=== PATIENT | male | born 1945 | race Caucasian/White ===

== ENCOUNTER 2022-03-06 11:28 | Inpatient (IN) | payer MEDICARE, BC ==
[2022-03-05 12:52] LABS: BASOPHILS # (AUTO) 0.1 X10'3 (0-0.2); BASOPHILS % (AUTO) 0.7 % (0-1); EOSINOPHILS # (AUTO) 0.1 X10'3 (0-0.9); EOSINOPHILS % (AUTO) 1.3 % (0-6); HEMATOCRIT 38.9 % (42.0-52.0); HEMOGLOBIN 13.6 g/dl (14.0-17.9); LYMPHOCYTES # (AUTO) 1.9 X10'3 (1.1-4.8); LYMPHOCYTES % (AUTO) 17.4 % (21-51); MEAN CORPUSCULAR HGB CONC 34.9 g/dL (33.0-36.5); MEAN CORPUSCULAR VOLUME 91.8 FL (78-98); MONOCYTES # (AUTO) 0.8 X10'3 (0-0.9); MONOCYTES % (AUTO) 7.5 % (2-12); NEUTROPHILS % (AUTO) 73.1 % (42-75); PLATELET COUNT 256 X10'3 (140-440); RED BLOOD COUNT 4.23 X10'6 (4.70-6.10); RED CELL DISTRIBUTION WIDTH 13.9 % (11.5-14.5)
[2022-03-05 13:23] LABS: APTT 28 SECONDS (22-32)
[2022-03-05 13:26] LABS: ALANINE AMINOTRANSFERASE 36 U/L (12-78); ALBUMIN 3.3 G/DL (3.4-5.0); ALBUMIN/GLOBULIN RATIO 0.8 (1.1-1.5); ALKALINE PHOSPHATASE 59 IU/L (46-116); ANION GAP 8 (8-16); ASPARTATE AMINO TRANSFERASE 24 U/L (10-37); BILIRUBIN,TOTAL 0.5 MG/DL (0.1-1.0); BLOOD UREA NITROGEN 15 MG/DL (7-18); BUN/CREATININE RATIO 23.8 (5.4-32.0); CALCIUM 8.9 MG/DL (8.5-10.1); CHLORIDE 105 MMOL/L (99-107); CREATININE 0.63 MG/DL (0.60-1.10); GLUCOSE 100 MG/DL (70-104); POTASSIUM 4.2 MMOL/L (3.5-5.1); SODIUM 139 MMOL/L (135-145); TOTAL CARBON DIOXIDE 26.2 MMOL/L (24-32); TOTAL PROTEIN 7.2 G/DL (6.4-8.2); eGFR > 90 ML/MIN
[~2022-03-06] VITALS: Ht 182.9 cm; Wt 117.6 kg
[2022-03-06] VITALS (12 sets, daily range): BP systolic 121–155; BP diastolic 69–94
[~2022-03-06 11:28] MED LIST: DUTA0.5C40 PO; FAMO20TA41 PO; NABU-139 PO; OMEP20TA43 PO
[2022-03-06] MEDS ORDERED: ACET-1 PO (12:04)
[2022-03-06] MEDS ORDERED: IBUP-1986 PO (12:04)
[2022-03-06] MEDS ORDERED: LINA145C PO (12:04)
[2022-03-06] MEDS ORDERED: HYDR-3686 PO (12:04)
[2022-03-06] MEDS ORDERED: nitroGLYCERIN 0.4mg SUBLingual tab SL PRN ×2 (12:05→12:15)
[2022-03-06] MEDS ORDERED: diphenhydrAMINE 25mg capsule PO PRN ×3 (12:05→17:35)
[2022-03-06] MEDS ORDERED: LORazepam 0.5 MG tablet PO PRN ×2 (12:05→12:20)
[2022-03-06] MEDS ORDERED: midazolam 1 mg/ML 2ml injection ONE ×2 (12:52→13:56)
[2022-03-06] MEDS ORDERED: fentaNYL/PF 50MCG/1 ML 2ML syringe ONE (12:52)
[2022-03-06] MEDS ORDERED: iohexol 350 MG/ML 50ML vial IV ONE ×2 (12:52→13:40)
[2022-03-06] MEDS ORDERED: LIDOCAINE 1% w/preservative (10 MG/ML) inj. 10mL VIAL ONE (12:52)
[2022-03-06] MEDS ORDERED: iohexol 350MG/ML 100ml bottle IV ONE ×2 (12:52→13:35)
[2022-03-06] MEDS: normal saline 1,000 ML IV SCH ×4 (12:59→21:07)
[2022-03-06] MEDS ORDERED: OXAZEpam 15mg capsule PO PRN (14:40)
[2022-03-06] MEDS ORDERED: HYDROcodone/acetaminophen 10/325mg tab PO PRN (14:40)
[2022-03-06] MEDS ORDERED: proCHLORperazine 10 MG/2 ml inj IV PRN (14:40)
[2022-03-06] MEDS ORDERED: ondansetron/PF 4mg/2ml inj IV PRN (14:40)
[2022-03-06 16:21] LABS: ABG BASE EXCESS -1.6 mmol/L (-2.0-2.0); ABG HCO3 22.5 mmol/L (22.0-26.0); ABG OXYGEN SATURATION 94.7 % (94-97); ABG PCO2 (T) 36.2 mmHg (35.0-48.0); ABG PO2 (T) 73.7 mmHg (75.0-100.0); ALLEN'S TEST POSITIVE; FCOHb 0.8 % (0.0-3.9); FMetHb 0.1 % (0.0-1.5); FO2Hb 93.8 % (94-97); TOTAL HEMOGLOBIN 13.6 G/dl (14.0-18.0)
[2022-03-06] MEDS ORDERED: MESSAGE TO NURSING PO ONE ×4 (17:35)
[2022-03-06] MEDS: Insulin Reg/NS 100units/100mL 100 ML IV SCH (17:35)
[2022-03-06] MEDS ORDERED: dextrose 50%-water 50ml dispensing syringe IV PRN (17:35)
[2022-03-06] MEDS ORDERED: HYDROcodone/acetaminophen 5mg/325mg tablet PO PRN (17:35)
[2022-03-06] MEDS ORDERED: insulin glargine (Lantus) pen - multi-dose SQ PRN (17:35)
[2022-03-06] MEDS ORDERED: cefazolin/dext.iso 2gm/50ml 50 ML IV ONE (17:35)
[2022-03-06] MEDS ORDERED: MESSAGE TO PHARMACY IJ ONE (17:35)
[2022-03-06] MEDS ORDERED: ondansetron 4mg rapidly disintigrating tab PO PRN (17:35)
[2022-03-06] MEDS ORDERED: gabapentin 400mg capsule PO ONE (17:35)
[2022-03-06] MEDS ORDERED: ibuprofen 200mg tablet PO PRN (17:40)
--- NOTE | 2022-03-06 17:48 | NUR ---
Patient in room . I have received report from ELENA RICKS SHORT STAY and had the opportunity to ask questions and assume patient care.
[2022-03-06] MEDS: normal saline 1000ml 1,000 ML IV SCH ×2 (18:00→19:00)
--- NOTE | 2022-03-06 18:00 | NUR ---
VSS, sml amt of bld on dsg, RN Domi marked dsg, Patient report given, questions answered & plan of care reviewed with MILLICENT Duron, call light within pt's reach, pt is in stable condition at this time, all pt's belongings transferred with pt. in pt belong bag including pt's phone that brought to pt. and pt's glasses.
--- NOTE | 2022-03-06 18:57 | NUR ---
Problems reprioritized. Patient report given, questions answered & plan of care reviewed with Soha RICKS.
--- NOTE | 2022-03-06 19:11 | NUR ---
Patient in room . I have received report from MILLICENT Hoyos and had the opportunity to ask questions and assume patient care.
--- NOTE | 2022-03-06 19:13 | NUR ---
Problems reprioritized. Patient report given, questions answered & plan of care reviewed with MILLICENT Dalton.
[2022-03-06] MEDS: sod chloride 0.9% 10ml flush syringe IV SCH (19:30)
[2022-03-06] MEDS: metoprolol tartrate 12.5mg (1/2 tablet) PO SCH (19:31)
[2022-03-06 19:54] LABS: APTT 28 SECONDS (22-32)
[2022-03-07 02:00] VITALS: BP 135/67
--- NOTE | 2022-03-07 06:17 | NUR ---
Problems reprioritized. Patient report given, questions answered & plan of care reviewed with MILLICENT Lema. Patient NPO, sitting up to bed. Denies pain.
--- NOTE | 2022-03-07 06:59 | NUR ---
Patient in room PCU 3012. I have received report from Krystle RICKS and had the opportunity to ask questions and assume patient care.
[2022-03-07] MEDS: dutasteride 0.5 MG capsule PO SCH (07:40)
[2022-03-07] MEDS: hydrOXYzine 25 MG tablet PO SCH (07:40)
[2022-03-07] MEDS: metoprolol tartrate 12.5mg (1/2 tablet) PO SCH (07:40)
[2022-03-07 08:00] VITALS: BP 134/79
[2022-03-07 09:24] LABS: BASOPHILS # (AUTO) 0.1 X10'3 (0-0.2); BASOPHILS % (AUTO) 0.6 % (0-1); EOSINOPHILS # (AUTO) 0.2 X10'3 (0-0.9); EOSINOPHILS % (AUTO) 1.5 % (0-6); HEMATOCRIT 38.3 % (42.0-52.0); HEMOGLOBIN 13.3 g/dl (14.0-17.9); LYMPHOCYTES # (AUTO) 1.9 X10'3 (1.1-4.8); LYMPHOCYTES % (AUTO) 16.9 % (21-51); MEAN CORPUSCULAR HEMOGLOBIN 31.9 PG (27.0-31.0); MEAN CORPUSCULAR HGB CONC 34.6 g/dL (33.0-36.5); MEAN CORPUSCULAR VOLUME 92.2 FL (78-98); MEAN PLATELET VOLUME 8.4 FL (7.4-10.4); MONOCYTES % (AUTO) 8.6 % (2-12); NEUTROPHILS # (AUTO) 8.1 X10'3 (1.8-7.7); NEUTROPHILS % (AUTO) 72.4 % (42-75); PLATELET COUNT 235 X10'3 (140-440); RED BLOOD COUNT 4.15 X10'6 (4.70-6.10); RED CELL DISTRIBUTION WIDTH 13.7 % (11.5-14.5); WHITE BLOOD COUNT 11.2 X10'3 (4.5-11.0)
[2022-03-07 09:27] LABS: ALBUMIN 2.9 G/DL (3.4-5.0); ANION GAP 7 (8-16); BLOOD UREA NITROGEN 13 MG/DL (7-18); BUN/CREATININE RATIO 23.6 (5.4-32.0); CALCIUM 8.7 MG/DL (8.5-10.1); CHLORIDE 104 MMOL/L (99-107); CREATININE 0.55 MG/DL (0.60-1.10); GLUCOSE 94 MG/DL (70-104); POTASSIUM 3.8 MMOL/L (3.5-5.1); SODIUM 136 MMOL/L (135-145); TOTAL CARBON DIOXIDE 24.8 MMOL/L (24-32); eGFR > 90 ML/MIN
[2022-03-07] MEDS ORDERED: MESSAGE TO NURSING PO ONE (10:00)
[2022-03-07] MEDS: HYDROcodone/acetaminophen 5mg/325mg tablet PO PRN ×2 (11:08→21:24)
[2022-03-07 14:34] LABS: CLARITY,URINE CLEAR (Clear); COLOR,URINE YELLOW (Yellow); GLUCOSE, URINE NEGATIVE (Neg); KETONES,URINE NEGATIVE (Neg); LEUKOCYTE ESTERASE ,URINE NEGATIVE (Neg); NITRITES, URINE NEGATIVE (Neg); OCCULT BLOOD,URINE NEGATIVE (Neg); PROTEIN,URINE NEGATIVE (Neg)
[2022-03-07 14:38] LABS: UA COLLECTION TYPE NON-SPECIFIED
[2022-03-07] MEDS ORDERED: ringers solution, lacted 1,000 ML IV ONE (14:50)
[2022-03-07 18:00] VITALS: BP 136/77
[2022-03-07] MEDS: normal saline 1,000 ML IV SCH (18:05)
[2022-03-07] MEDS: sod chloride 0.9% 10ml flush syringe IV SCH (20:00)
[2022-03-08] VITALS (19 sets, daily range): BP systolic 98–151; BP diastolic 57–82
[2022-03-08] MEDS: Insulin Reg/NS 100units/100mL 100 ML IV SCH ×2 (02:55→17:29)
[2022-03-08] MEDS: normal saline 1,000 ML IV SCH ×2 (04:05→14:05)
[2022-03-08] MEDS ORDERED: LORazepam 2 mg/ml vial IV ONE (06:00)
[2022-03-08] MEDS ORDERED: famotidine/PF 10 mg/ml inj IV ONE (06:00)
[2022-03-08] MEDS ORDERED: ceFAZolin 1000mg inj ONE (07:25)
[2022-03-08] MEDS ORDERED: ROPIVAcaine 0.5% (5mg/ml) 30ml vial ONE (07:25)
[2022-03-08] MEDS ORDERED: DOPamine 400mg/D5W 250ml 250 ML IV SCH (07:45)
[2022-03-08] MEDS ORDERED: ceFAZolin/D5W- 1GM premix 50 ML IV ONE (07:50)
[2022-03-08] MEDS ORDERED: magnesium 1 GM/2 ML inj ONE (08:00)
[2022-03-08] MEDS ORDERED: heparin 10,000 units/1 ML INJ ONE (08:00)
[2022-03-08] MEDS ORDERED: potassium acetate 2 mEq/1ml inj. IV ONE (08:00)
[2022-03-08] MEDS ORDERED: LIDOcaine 2% (20 mg/ml) 5ml cardiac syringe ONE (08:00)
[2022-03-08] MEDS: sod chloride 0.9% 10ml flush syringe IV SCH (08:00)
[2022-03-08] MEDS ORDERED: heparin 1,000 units/ml 10ml inj ONE (08:00)
[2022-03-08] MEDS: hydrOXYzine 25 MG tablet PO SCH (08:00)
[2022-03-08] MEDS ORDERED: albumin (human) 25% 100 ML IV solution IV ONE (08:00)
[2022-03-08] MEDS: metoprolol tartrate 12.5mg (1/2 tablet) PO SCH ×2 (08:00→09:00)
[2022-03-08] MEDS ORDERED: methylPREDNISolone sod succ 1000mg vial ONE (08:00)
[2022-03-08] MEDS ORDERED: calcium chloride 100 MG/1 ML inj IV ONE (08:00)
[2022-03-08] MEDS ORDERED: NORepinephrine bitart. inj. IV ONE (08:00)
[2022-03-08] MEDS ORDERED: sodium bicarbonate (8.4%) 1 mEq/ml syringe ONE (08:00)
[2022-03-08] MEDS: dutasteride 0.5 MG capsule PO SCH (08:00)
[2022-03-08] MEDS ORDERED: aminocaproic acid 250 MG/1 ML inj. ONE (08:00)
[2022-03-08] MEDS ORDERED: ceFAZolin 2gm in dextrose, iso 50 ML IV ONE (08:10)
[2022-03-08] MEDS ORDERED: papaverine 30 mg/ml 2ml inj. IA ONE (08:23)
[2022-03-08] MEDS ORDERED: heparin 10,000 units/1 ML INJ IR ONE (08:24)
[2022-03-08] MEDS ORDERED: MIDAZolam 1mg/ml 10ml vial ONE (09:53)
[2022-03-08] MEDS ORDERED: nitroGLYCERIN in D5W 50mg/250ml (Tridil) infusion IV ONE (09:54)
[2022-03-08] MEDS ORDERED: protamine sulf. 10mg/ml inj. IV ONE (09:54)
[2022-03-08] MEDS ORDERED: isoflurane 100ml inhalation liquid IH ONE (09:54)
[2022-03-08] MEDS ORDERED: albumin (Human) 5% 250ml BOTTLE IV ONE (09:54)
[2022-03-08] MEDS ORDERED: DOPamine/D5W 400mg/250ml bag IV ONE (09:54)
[2022-03-08] MEDS ORDERED: SUFENTANIL CITRATE 50 MCG/ML 2ml ampule IV ONE (09:54)
[2022-03-08] MEDS ORDERED: NORepinephrine 8 MG in NS 250 ML BAG (32 mcg/ml) IV ONE (09:54)
[2022-03-08] MEDS ORDERED: LIDOcaine 2% (20mg/ml) 5ml vial ONE (09:57)
[2022-03-08] MEDS ORDERED: propofol inj 20 ML IV ONE (09:57)
[2022-03-08] MEDS ORDERED: rocuronium 10mg/ml inj IV ONE ×4 (09:57→10:50)
[2022-03-08] MEDS ORDERED: phenylephrine 10mg/ml inj. ONE (09:57)
[2022-03-08] MEDS ORDERED: 0.9 % SODIUM CHLORIDE 10 ML VIAL ONE ×2 (09:57)
[2022-03-08 10:20] LABS: BASOPHILS # (AUTO) 0.2 X10'3 (0-0.2); EOSINOPHILS # (AUTO) 0.1 X10'3 (0-0.9); HEMATOCRIT 38.9 % (42.0-52.0); HEMOGLOBIN 13.3 g/dl (14.0-17.9); LYMPHOCYTES # (AUTO) 1.2 X10'3 (1.1-4.8); LYMPHOCYTES % (AUTO) 10.4 % (21-51); MEAN CORPUSCULAR HEMOGLOBIN 31.4 PG (27.0-31.0); MEAN CORPUSCULAR HGB CONC 34.2 g/dL (33.0-36.5); MEAN CORPUSCULAR VOLUME 91.8 FL (78-98); MEAN PLATELET VOLUME 8.5 FL (7.4-10.4); MONOCYTES # (AUTO) 0.9 X10'3 (0-0.9); MONOCYTES % (AUTO) 7.9 % (2-12); NEUTROPHILS # (AUTO) 9.2 X10'3 (1.8-7.7); NEUTROPHILS % (AUTO) 78.7 % (42-75); PLATELET COUNT 234 X10'3 (140-440); RED BLOOD COUNT 4.24 X10'6 (4.70-6.10); RED CELL DISTRIBUTION WIDTH 13.8 % (11.5-14.5); WHITE BLOOD COUNT 11.7 X10'3 (4.5-11.0)
[2022-03-08 10:40] LABS: ANION GAP 9 (8-16); BLOOD UREA NITROGEN 14 MG/DL (7-18); BUN/CREATININE RATIO 24.1 (5.4-32.0); CALCIUM 8.7 MG/DL (8.5-10.1); CHLORIDE 104 MMOL/L (99-107); CREATININE 0.58 MG/DL (0.60-1.10); GLUCOSE 101 MG/DL (70-104); POTASSIUM 3.8 MMOL/L (3.5-5.1); SODIUM 140 MMOL/L (135-145); TOTAL CARBON DIOXIDE 26.7 MMOL/L (24-32); eGFR > 90 ML/MIN
[2022-03-08 10:45] LABS: ABG BASE EXCESS -3.1 mmol/L (-2.0-2.0); ABG HCO3 20.9 mmol/L (22.0-26.0); ABG OXYGEN SATURATION 99.7 % (94-97); ABG PCO2 34.3 mmHg (35.0-48.0); ABG PO2 361.1 mmHg (75.0-100.0); CL (ABG) 104 mmol/L (98-110); FCOHb 0.4 % (0.0-3.9); FMetHb 0.3 % (0.0-1.5); GLUCOSE (ABG) 98 mg/dl (70-105); IONIZED CA (ABG) 1.13 mmol/L (1.10-1.43); K (ABG) 3.6 mmol/L (3.5-5.0); TOTAL HEMOGLOBIN 12.6 G/dl (14.0-18.0)
[2022-03-08] MEDS ORDERED: papaverine 30 mg/ml 2ml inj. ONE (11:00)
[2022-03-08 11:43] LABS: ABG BASE EXCESS 0.3 mmol/L (-2.0-2.0); ABG OXYGEN SATURATION 99.5 % (94-97); ABG PCO2 34.8 mmHg (35.0-48.0); ABG PO2 321.8 mmHg (75.0-100.0); CL (ABG) 103 mmol/L (98-110); FCOHb 0.3 % (0.0-3.9); FMetHb 0.3 % (0.0-1.5); FO2Hb 98.9 % (94-97); GLUCOSE (ABG) 106 mg/dl (70-105); IONIZED CA (ABG) 1.07 mmol/L (1.10-1.43); K (ABG) 4.2 mmol/L (3.5-5.0)
[2022-03-08] MEDS ORDERED: FENTANYL CITRATE/D5W/PF 100 ML IV PRN (12:15)
[2022-03-08] MEDS ORDERED: midazolam 1 mg/ML 2ml injection IV ONE (12:15)
[2022-03-08] MEDS ORDERED: midazolam 100mg in NS 100ml 100 ML IV PRN (12:15)
[2022-03-08] MEDS ORDERED: fentaNYL/PF 50MCG/1 ML 2ML syringe IV PRN (12:15)
[2022-03-08 12:31] LABS: ABG BASE EXCESS VENOUS 0.4 mmol/L (-2.0 - 2.0); ABG HCO3 VENOUS 25.6 mmol/L (21.0-28.0); ABG PCO2 VENOUS 43.6 mmHg (41.0-54.0); CL (ABG) 104 mmol/L (98-110); FCOHb VENOUS 0.6 %; FHHb VENOUS 16.4 %; FMetHb VENOUS 0.3 % (0.0 - 0.5); FO2Hb VENOUS 82.7 %; GLUCOSE (ABG) 132 mg/dl (70-105); IONIZED CA (ABG) 1.12 mmol/L (1.10-1.43); K (ABG) 4.2 mmol/L (3.5-5.0); TOTAL HEMOGLOBIN 10.7 G/dl (14.0-18.0)
[2022-03-08 13:45] LABS: ABG BASE EXCESS -0.5 mmol/L (-2.0-2.0); ABG HCO3 24.8 mmol/L (22.0-26.0); ABG OXYGEN SATURATION 99.5 % (94-97); CL (ABG) 105 mmol/L (98-110); FCOHb 0.6 % (0.0-3.9); FMetHb 0.3 % (0.0-1.5); FO2Hb 98.6 % (94-97); GLUCOSE (ABG) 156 mg/dl (70-105); IONIZED CA (ABG) 1.12 mmol/L (1.10-1.43); K (ABG) 4.5 mmol/L (3.5-5.0); TOTAL HEMOGLOBIN 10.7 G/dl (14.0-18.0)
[2022-03-08] MEDS ORDERED: FENTANYL-0.9 % NACL/PF 100 ML IV PRN (14:02)
[2022-03-08 14:34] LABS: ACT @ 1.70 U 292 SEC (193-297); ACT @ 2.84 U 410 SEC (260-420); BASELINE ACT 155 SEC (101-148)
[2022-03-08 14:39] LABS: ABG BASE EXCESS -1.6 mmol/L (-2.0-2.0); ABG HCO3 22.4 mmol/L (22.0-26.0); ABG PCO2 35.2 mmHg (35.0-48.0); ABG PO2 65.1 mmHg (75.0-100.0); CL (ABG) 107 mmol/L (98-110); FCOHb 0.2 % (0.0-3.9); FMetHb 0.3 % (0.0-1.5); FO2Hb 92.5 % (94-97); GLUCOSE (ABG) 129 mg/dl (70-105); K (ABG) 3.8 mmol/L (3.5-5.0); TOTAL HEMOGLOBIN 10.6 G/dl (14.0-18.0)
[2022-03-08 14:42] LABS: ACTIVATED CLOTTING TIME 123 SEC (101-148)
[2022-03-08] MEDS ORDERED: ondansetron/PF 4mg/2ml inj ONE (15:24)
[2022-03-08] MEDS ORDERED: dexamethasone sod phosphate 4mg/ml inj. ONE (15:24)
[2022-03-08] MEDS ORDERED: DOPamine 400mg/D5W 250ml 250 ML IV PRN (15:50)
[2022-03-08] MEDS ORDERED: niCARDipine-NS 40mg/200ml IVPB 200 ML IV PRN (15:50)
[2022-03-08] MEDS ORDERED: ondansetron/PF 4mg/2ml inj IV PRN (15:50)
[2022-03-08] MEDS ORDERED: magnesium citrate 296ml oral solution PO PRN (15:50)
[2022-03-08] MEDS ORDERED: magnesium 4gm in 100ml NS 100 ML IV PRN (15:50)
[2022-03-08] MEDS ORDERED: potassium Cl 20 mEq SR tablet PO PRN (15:50)
[2022-03-08] MEDS ORDERED: acetaminophen 325mg tablet PO PRN (15:50)
[2022-03-08] MEDS ORDERED: Neutra Phos packet PO PRN (15:50)
[2022-03-08] MEDS ORDERED: sodium phosphate inj. 30 MMOL in dextrose 5%-water 250 ML IV PRN (15:50)
[2022-03-08] MEDS ORDERED: dextrose 50%-water 50ml dispensing syringe IV PRN (15:50)
[2022-03-08] MEDS ORDERED: sodium phosphate inj. 15 MMOL in dextrose 5%-water 250 ML IV PRN (15:50)
[2022-03-08] MEDS ORDERED: potassium CL 10mEq/100ml bag 100 ML IV PRN (15:50)
[2022-03-08] MEDS ORDERED: nitroGLYCERIN-Tridil 50MG/D5W 250 ML IV PRN (15:50)
[2022-03-08] MEDS ORDERED: mineral oil 133ml enema RC PRN (15:50)
[2022-03-08] MEDS ORDERED: normal saline 250ml IV soln 250 ML IV PRN (15:50)
[2022-03-08] MEDS ORDERED: metoclopramide 5 mg/ml inj IV PRN (15:50)
[2022-03-08] MEDS ORDERED: morphine 2 MG/ML inj. syringe IV PRN (15:50)
[2022-03-08] MEDS ORDERED: insulin glargine (Lantus) pen - multi-dose SQ PRN (15:50)
[2022-03-08] MEDS ORDERED: NOREPINEPHRINE BITARTRATE/D5W 250 ML IV PRN ×2 (15:50→18:14)
[2022-03-08] MEDS ORDERED: bisacodyl 10mg suppository rectal RC PRN (15:50)
[2022-03-08] MEDS ORDERED: magnesium hydroxide 30ml (MOM) UD suspension PO PRN (15:50)
[2022-03-08] MEDS ORDERED: propofol 1000mg/100ml bottle 100 ML IV ONE (15:59)
[2022-03-08] MEDS ORDERED: propofol 1000mg/100ml bottle 100 ML IV PRN (16:00)
--- NOTE | 2022-03-08 16:00 | NUR ---
Received to room 2007, accompanied by Dr. Chowdhury, Dr. Whitaker and surgical crew. [place]/PAline/CVPline and IVs noted in IV assessment records. All sites without redness or swelling. Vasoactive drugs infusing per [facility]. Patient began waking up immediately upon admission to ICU and reaching for ETT. Propofol started. Atrially paced at rate of 80. Underlying rhythm sinus rhythm at rate of 60. CI 2.5. On low dose Levophed. Minimal drainage from CT & PASHA x 2. Breath sounds clear on ventilator.
--- NOTE | 2022-03-08 16:03 | NUR ---
Nutrition consult: Pt s/p CABG today. Pt would benefit from nutrition therapy education once stable. Will continue to follow. Addendum: 03/08/22 at [address] Amended: Links added.
[2022-03-08 16:17] LABS: ABG BASE EXCESS -0.7 mmol/L (-2.0-2.0); ABG HCO3 24.3 mmol/L (22.0-26.0); ABG OXYGEN SATURATION 97.9 % (94-97); ABG PCO2 (T) 41.4 mmHg (35.0-48.0); ABG PO2 (T) 112.2 mmHg (75.0-100.0); FCOHb 0.3 % (0.0-3.9); FMetHb 0.3 % (0.0-1.5); FO2Hb 97.3 % (94-97); PATIENT TEMPERATURE 36.8; PEEP 5 cm H2O; RESPIRATORY RATE 12 b/min; TIDAL VOLUME 600 mL; TOTAL HEMOGLOBIN 13.6 G/dl (14.0-18.0)
[2022-03-08 16:19] LABS: BASOPHILS # (AUTO) 0.1 X10'3 (0-0.2); BASOPHILS % (AUTO) 0.3 % (0-1); EOSINOPHILS % (AUTO) 0.1 % (0-6); HEMATOCRIT 38.1 % (42.0-52.0); HEMOGLOBIN 12.8 g/dl (14.0-17.9); LYMPHOCYTES # (AUTO) 0.9 X10'3 (1.1-4.8); MEAN CORPUSCULAR HEMOGLOBIN 30.6 PG (27.0-31.0); MEAN CORPUSCULAR HGB CONC 33.5 g/dL (33.0-36.5); MEAN CORPUSCULAR VOLUME 91.5 FL (78-98); MEAN PLATELET VOLUME 8.1 FL (7.4-10.4); MONOCYTES # (AUTO) 1.3 X10'3 (0-0.9); MONOCYTES % (AUTO) 4.2 % (2-12); NEUTROPHILS # (AUTO) 27.6 X10'3 (1.8-7.7); NEUTROPHILS % (AUTO) 92.4 % (42-75); PLATELET COUNT 218 X10'3 (140-440); RED BLOOD COUNT 4.17 X10'6 (4.70-6.10); RED CELL DISTRIBUTION WIDTH 13.9 % (11.5-14.5)
[2022-03-08 16:22] LABS: WHITE BLOOD COUNT 29.8 X10'3 (4.5-11.0)
[2022-03-08 16:39] LABS: ALANINE AMINOTRANSFERASE 28 U/L (12-78); ALBUMIN/GLOBULIN RATIO 0.9 (1.1-1.5); ALKALINE PHOSPHATASE 44 IU/L (46-116); ANION GAP 8 (8-16); ASPARTATE AMINO TRANSFERASE 57 U/L (10-37); BILIRUBIN,TOTAL 0.9 MG/DL (0.1-1.0); BLOOD UREA NITROGEN 15 MG/DL (7-18); BUN/CREATININE RATIO 21.7 (5.4-32.0); CALCIUM 8.1 MG/DL (8.5-10.1); CHLORIDE 109 MMOL/L (99-107); CREATININE 0.69 MG/DL (0.60-1.10); GLUCOSE 129 MG/DL (70-104); PHOSPHORUS 3.5 MG/DL (2.3-4.5); POTASSIUM 3.6 MMOL/L (3.5-5.1); SODIUM 143 MMOL/L (135-145); TOTAL CARBON DIOXIDE 26.1 MMOL/L (24-32); TOTAL PROTEIN 6.2 G/DL (6.4-8.2); eGFR > 90 ML/MIN
[2022-03-08] MEDS: morphine 4 MG/ML inj SYRINge IV PRN ×2 (16:44→21:49)
[2022-03-08 16:48] LABS: APTT 25 SECONDS (22-32)
[2022-03-08] MEDS: albumin (Human) 5% 250ml 250 ML IV PRN ×2 (16:55→21:19)
[2022-03-08] MEDS: sodium chloride 0.45% 1,000 ML IV SCH (16:56)
[2022-03-08 16:57] LABS: PLATELET ESTIMATE NORMAL; TOTAL CELLS COUNTED 100
[2022-03-08] MEDS: potassium Cl 20mEq/100mL bag 100 ML IV PRN ×2 (17:00→18:15)
[2022-03-08] MEDS: ceFAZolin/D5W- 1GM premix 50 ML IV SCH (17:26)
--- NOTE | 2022-03-08 18:28 | NUR ---
Problems reprioritized. Patient report given, questions answered & plan of care reviewed with Mac RN.
[2022-03-08] MEDS ORDERED: mupirocin 2% ointment 22GM NS SCH (20:00)
[2022-03-08] MEDS: atorvastatin 10mg tablet PO SCH (20:22)
[2022-03-08] MEDS: sennosides/docusate sodium tablet PO SCH (20:22)
[2022-03-08] MEDS: vancomycin/NS 1 GM ADD-VANTAGE 250 ML IV SCH (20:22)
[2022-03-08] MEDS: gabapentin 300mg capsule PO SCH (20:22)
--- NOTE | 2022-03-08 20:35 | NUR ---
RN Note -Called pt's regarding cochlear implant. will bring processor in tonight.
--- NOTE | 2022-03-08 21:10 | NUR ---
RN Note -MD Communication Spoke with Dr. Chowdhury. Updated on pt condition and that will bring in processor for cochlear implant.
[2022-03-08] MEDS: mupirocin 2% nasal ointment 1gm UD NS SCH (21:22)
--- NOTE | 2022-03-08 23:05 | NUR ---
RN Note -Pt is still unable to hear with processor. Using note pad to communicate.
[2022-03-09] VITALS (31 sets, daily range): BP systolic 94–147; BP diastolic 48–89
[2022-03-09] MEDS: ceFAZolin/D5W- 1GM premix 50 ML IV SCH ×3 (00:59→15:35)
[2022-03-09 01:12] LABS: ABG BASE EXCESS -3.6 mmol/L (-2.0-2.0); ABG HCO3 20.7 mmol/L (22.0-26.0); ABG OXYGEN SATURATION 90.2 % (94-97); ABG PCO2 (T) 35.5 mmHg (35.0-48.0); ABG PO2 (T) 61.9 mmHg (75.0-100.0); FCOHb 0.3 % (0.0-3.9); FMetHb 0.3 % (0.0-1.5); FO2Hb 89.7 % (94-97); PATIENT TEMPERATURE 37.3; TOTAL HEMOGLOBIN 12.4 G/dl (14.0-18.0)
--- NOTE | 2022-03-09 01:40 | NUR ---
RN Note -MD Communication Spoke with Dr. Chowdhury regarding ABG. Vent orders received.
[2022-03-09] MEDS: morphine 4 MG/ML inj SYRINge IV PRN ×3 (01:46→23:27)
[2022-03-09 02:30] LABS: BASOPHILS % (AUTO) 0.1 % (0-1); EOSINOPHILS % (AUTO) 0 % (0-6); HEMATOCRIT 32.4 % (42.0-52.0); HEMOGLOBIN 11.1 g/dl (14.0-17.9); LYMPHOCYTES # (AUTO) 0.5 X10'3 (1.1-4.8); LYMPHOCYTES % (AUTO) 2.6 % (21-51); MEAN CORPUSCULAR HEMOGLOBIN 31.6 PG (27.0-31.0); MEAN CORPUSCULAR HGB CONC 34.2 g/dL (33.0-36.5); MEAN CORPUSCULAR VOLUME 92.5 FL (78-98); MEAN PLATELET VOLUME 8.4 FL (7.4-10.4); MONOCYTES # (AUTO) 0.8 X10'3 (0-0.9); MONOCYTES % (AUTO) 4.3 % (2-12); PLATELET COUNT 170 X10'3 (140-440); RED BLOOD COUNT 3.51 X10'6 (4.70-6.10); RED CELL DISTRIBUTION WIDTH 13.6 % (11.5-14.5); WHITE BLOOD COUNT 19.4 X10'3 (4.5-11.0)
[2022-03-09 02:47] LABS: ALANINE AMINOTRANSFERASE 38 U/L (12-78); ALBUMIN/GLOBULIN RATIO 1.1 (1.1-1.5); ALKALINE PHOSPHATASE 36 IU/L (46-116); ANION GAP 8 (8-16); ASPARTATE AMINO TRANSFERASE 123 U/L (10-37); BILIRUBIN,TOTAL 0.6 MG/DL (0.1-1.0); BLOOD UREA NITROGEN 17 MG/DL (7-18); BUN/CREATININE RATIO 24.6 (5.4-32.0); CALCIUM 7.9 MG/DL (8.5-10.1); CHLORIDE 110 MMOL/L (99-107); CREATININE 0.69 MG/DL (0.60-1.10); GLUCOSE 148 MG/DL (70-104); MAGNESIUM 2.4 MG/DL (1.5-2.4); PHOSPHORUS 3.9 MG/DL (2.3-4.5); SODIUM 143 MMOL/L (135-145); TOTAL CARBON DIOXIDE 24.8 MMOL/L (24-32); TOTAL PROTEIN 5.8 G/DL (6.4-8.2); TRIGLYCERIDES 32 MG/DL (20-135); eGFR > 90 ML/MIN
[2022-03-09 02:54] LABS: APTT 26 SECONDS (22-32)
[2022-03-09] MEDS: propofol 1000mg/100ml bottle 100 ML IV PRN (03:20)
[2022-03-09] MEDS: potassium Cl 20mEq/100mL bag 100 ML IV PRN ×2 (04:38→05:40)
[2022-03-09] MEDS: magnesium 2GM in 50ml NS 50 ML IV PRN (04:38)
[2022-03-09 07:11] LABS: ABG BASE EXCESS -1.4 mmol/L (-2.0-2.0); ABG HCO3 22.7 mmol/L (22.0-26.0); ABG OXYGEN SATURATION 93.3 % (94-97); ABG PCO2 (T) 36.4 mmHg (35.0-48.0); ABG PO2 (T) 70.6 mmHg (75.0-100.0); FCOHb 0.3 % (0.0-3.9); FMetHb 0.2 % (0.0-1.5); FO2Hb 92.8 % (94-97); PATIENT TEMPERATURE 37.3; PEEP 8 cm H2O; RESPIRATORY RATE 10 b/min; TIDAL VOLUME 600 mL; TOTAL HEMOGLOBIN 12.4 G/dl (14.0-18.0)
[2022-03-09] MEDS: metoprolol tartrate 12.5mg (1/2 tablet) PO SCH ×2 (08:00→19:53)
[2022-03-09] MEDS: acetylcysteine 200 MG/ml 4ml vial INH SCH ×5 (08:25→23:04)
[2022-03-09] MEDS: gabapentin 300mg capsule PO SCH ×3 (08:37→20:24)
[2022-03-09] MEDS: sennosides/docusate sodium tablet PO SCH ×2 (08:37→19:53)
[2022-03-09] MEDS: HYDROcodone/acetaminophen 10/325mg tab PO PRN ×2 (08:38→13:36)
[2022-03-09] MEDS: mupirocin 2% nasal ointment 1gm UD NS SCH ×2 (08:38→19:53)
[2022-03-09] MEDS: dutasteride 0.5 MG capsule PO SCH (08:39)
[2022-03-09] MEDS: aspirin 325mg tablet, delayed-release (Ecotrin) PO SCH (08:39)
[2022-03-09] MEDS: vancomycin/NS 1 GM ADD-VANTAGE 250 ML IV SCH ×2 (08:41→19:52)
[2022-03-09] MEDS: ipratropium/albuterol 3ml nebule NEB SCH ×5 (09:21→23:04)
[2022-03-09] MEDS: mineral oil/petrolatum ophthal oint EACHEYE SCH ×2 (13:35→19:53)
[2022-03-09 15:41] LABS: ABG BASE EXCESS -2.1 mmol/L (-2.0-2.0); ABG HCO3 22.5 mmol/L (22.0-26.0); ABG OXYGEN SATURATION 91.6 % (94-97); ABG PCO2 (T) 38.1 mmHg (35.0-48.0); ABG PO2 (T) 68.9 mmHg (75.0-100.0); FMetHb 0.2 % (0.0-1.5); FO2Hb 91.4 % (94-97); PATIENT TEMPERATURE 37.3; PEEP 10 cm H2O; RESPIRATORY RATE 10 b/min; TIDAL VOLUME 600 mL; TOTAL HEMOGLOBIN 11.1 G/dl (14.0-18.0)
[2022-03-09] MEDS ORDERED: furosemide 40mg/4ml inj IV ONE (17:10)
[2022-03-09] MEDS ORDERED: albumin (Human) 5% 250ml 250 ML IV ONE ×2 (17:30→22:10)
[2022-03-09] MEDS: atorvastatin 10mg tablet PO SCH (20:23)
--- NOTE | 2022-03-09 22:25 | NUR ---
RN Note -MD Communication Dr. Chowdhury for update on pt. Orders received
[2022-03-10] VITALS (28 sets, daily range): BP systolic 95–124; BP diastolic 49–79
[2022-03-10] MEDS: ceFAZolin/D5W- 1GM premix 50 ML IV SCH (00:38)
[2022-03-10] MEDS: Insulin Reg/NS 100units/100mL 100 ML IV SCH (01:10)
[2022-03-10] MEDS: mineral oil/petrolatum ophthal oint EACHEYE SCH ×2 (02:13→08:28)
[2022-03-10] MEDS: propofol 1000mg/100ml bottle 100 ML IV PRN ×2 (02:14→06:58)
[2022-03-10] MEDS: ipratropium/albuterol 3ml nebule NEB SCH ×6 (02:40→23:40)
[2022-03-10] MEDS: acetylcysteine 200 MG/ml 4ml vial INH SCH ×5 (02:40→23:40)
[2022-03-10 02:55] LABS: APTT 26 SECONDS (22-32)
[2022-03-10 02:57] LABS: ANION GAP 9 (8-16); BLOOD UREA NITROGEN 25 MG/DL (7-18); BUN/CREATININE RATIO 33.8 (5.4-32.0); CALCIUM 8.3 MG/DL (8.5-10.1); CHLORIDE 107 MMOL/L (99-107); CREATININE 0.74 MG/DL (0.60-1.10); GLUCOSE 165 MG/DL (70-104); MAGNESIUM 2.3 MG/DL (1.5-2.4); PHOSPHORUS 3.3 MG/DL (2.3-4.5); POTASSIUM 4.4 MMOL/L (3.5-5.1); SODIUM 142 MMOL/L (135-145); eGFR > 90 ML/MIN
[2022-03-10 02:59] LABS: BASOPHILS # (AUTO) 0.1 X10'3 (0-0.2); BASOPHILS % (AUTO) 0.2 % (0-1); EOSINOPHILS % (AUTO) 0 % (0-6); HEMATOCRIT 29.7 % (42.0-52.0); HEMOGLOBIN 9.8 g/dl (14.0-17.9); LYMPHOCYTES # (AUTO) 1.3 X10'3 (1.1-4.8); LYMPHOCYTES % (AUTO) 4.9 % (21-51); MEAN CORPUSCULAR HEMOGLOBIN 31.3 PG (27.0-31.0); MEAN CORPUSCULAR VOLUME 94.7 FL (78-98); MEAN PLATELET VOLUME 8.6 FL (7.4-10.4); MONOCYTES # (AUTO) 1.7 X10'3 (0-0.9); MONOCYTES % (AUTO) 6.6 % (2-12); NEUTROPHILS # (AUTO) 22.8 X10'3 (1.8-7.7); NEUTROPHILS % (AUTO) 88.3 % (42-75); PLATELET COUNT 154 X10'3 (140-440); RED BLOOD COUNT 3.14 X10'6 (4.70-6.10); RED CELL DISTRIBUTION WIDTH 14.2 % (11.5-14.5)
[2022-03-10 03:08] LABS: ABG BASE EXCESS -0.9 mmol/L (-2.0-2.0); ABG HCO3 23.1 mmol/L (22.0-26.0); ABG OXYGEN SATURATION 92.6 % (94-97); ABG PO2 (T) 69.6 mmHg (75.0-100.0); FCOHb 0.3 % (0.0-3.9); FMetHb 0.3 % (0.0-1.5); PATIENT TEMPERATURE 37.8; PEEP 10 cm H2O; RESPIRATORY RATE 10 b/min; TIDAL VOLUME 600 mL; TOTAL HEMOGLOBIN 10.8 G/dl (14.0-18.0)
[2022-03-10 03:09] LABS: WHITE BLOOD COUNT 25.8 X10'3 (4.5-11.0)
[2022-03-10 03:54] LABS: PLATELET ESTIMATE NORMAL; TOTAL CELLS COUNTED 100
--- NOTE | 2022-03-10 05:30 | NUR ---
RN note -MD Communication Called Dr. Chowdhury regarding WBC and temperature. Orders received.
--- NOTE | 2022-03-10 06:38 | NUR ---
Patient in room CICU 2008. I have received report from Veda Hernandez RN ([facility]) and had the opportunity to ask questions and assume patient care.
[2022-03-10 06:43] LABS: CLARITY,URINE SLIGHTLY CLOUDY (Clear); COLOR,URINE YELLOW (Yellow); GLUCOSE, URINE NEGATIVE (Neg); KETONES,URINE NEGATIVE (Neg); LEUKOCYTE ESTERASE ,URINE NEGATIVE (Neg); NITRITES, URINE NEGATIVE (Neg); OCCULT BLOOD,URINE LARGE (Neg); PH,URINE 5.5 (4.8-8.0); PROTEIN,URINE NEGATIVE (Neg); UA COLLECTION TYPE FOLEY CATH
[2022-03-10 06:55] LABS: MUCUS STRANDS FEW /LPF (Neg); SQUAMOUS EPITHELIAL CELL,UR NONE SEEN /LPF (FEW)
[2022-03-10 06:56] LABS: RBC,URINE TNTC /HPF (0-2)
[2022-03-10] MEDS: acetaminophen 325mg tablet PO PRN (06:56)
[2022-03-10] MEDS: levoFLOXACIN-Levaquin 500mg/D5 100 ML IV SCH (06:56)
[2022-03-10 06:58] LABS: BACTERIA,URINE FEW /HPF (Neg)
[2022-03-10] MEDS: aspirin 325mg tablet, delayed-release (Ecotrin) PO SCH (08:00)
[2022-03-10] MEDS: metoprolol tartrate 12.5mg (1/2 tablet) PO SCH ×2 (08:00→18:55)
[2022-03-10] MEDS: dutasteride 0.5 MG capsule PO SCH (08:28)
[2022-03-10] MEDS: sennosides/docusate sodium tablet PO SCH ×2 (08:28→20:22)
[2022-03-10] MEDS: mupirocin 2% nasal ointment 1gm UD NS SCH (08:28)
[2022-03-10] MEDS: gabapentin 300mg capsule PO SCH ×2 (08:28→13:03)
[2022-03-10] MEDS: pantoprazole 40mg Tablet.DR PO SCH (08:31)
--- NOTE | 2022-03-10 09:54 | NUR ---
Alverto Omalley in. Weaning paramters obtained and deemed appropriate for extubation. Chest tubes dc'd per Alverto Omalley. Pt. extuabted to nasal canula at 0927 while Alverto Omalley at bedside. at bedside.
--- NOTE | 2022-03-10 10:44 | NUR ---
Rapid Afib noted. Called Alverto ARGUETA. Orders rec'd.
[2022-03-10] MEDS ORDERED: amiodarone 150mg/dext, iso-os 100 ML IV ONE ×2 (10:45→10:48)
[2022-03-10] MEDS: amiodarone/D5 360MG/200ML BAG 200 ML IV SCH ×3 (11:07→21:31)
[2022-03-10] MEDS: HYDROcodone/acetaminophen 10/325mg tab PO PRN (11:42)
[2022-03-10] MEDS ORDERED: digoxin 250mcg/ml 2ml ampule IV ONE ×2 (11:50→12:00)
[2022-03-10] MEDS ORDERED: magnesium 2GM in 50ml NS 50 ML IV ONE (11:50)
--- NOTE | 2022-03-10 12:28 | NUR ---
Dr. Chowdhury in at 1200. Aware of rapid afib. Orders received for Dig x 1 dose and 2gm mag x 1 dose. HR remains increased.
[2022-03-10] MEDS: sodium chloride 0.45% 1,000 ML IV SCH (16:33)
[2022-03-10] MEDS ORDERED: enoxaparin 40mg/0.4ml syringe SUBCUT SCH (17:00)
--- NOTE | 2022-03-10 18:10 | NUR ---
Problems reprioritized. Patient report given, questions answered & plan of care reviewed with Veda Stout) MILLICENT.
[2022-03-10] MEDS: atorvastatin 10mg tablet PO SCH (20:22)
[2022-03-10] MEDS ORDERED: digoxin 250mcg/ml 2ml ampule IV PRN (21:35)
[2022-03-10] MEDS ORDERED: dexmedetomidine/D5W 100mL 100 ML IV SCH (22:35)
[2022-03-11] VITALS (24 sets, daily range): BP systolic 81–148; BP diastolic 7–81
[2022-03-11] MEDS: amiodarone/D5 360MG/200ML BAG 200 ML IV SCH ×3 (00:34→08:37)
[2022-03-11 03:18] LABS: BASOPHILS % (AUTO) 0.2 % (0-1); EOSINOPHILS % (AUTO) 0 % (0-6); HEMATOCRIT 27.8 % (42.0-52.0); HEMOGLOBIN 9.4 g/dl (14.0-17.9); LYMPHOCYTES # (AUTO) 1.6 X10'3 (1.1-4.8); LYMPHOCYTES % (AUTO) 8.6 % (21-51); MEAN CORPUSCULAR HEMOGLOBIN 31.7 PG (27.0-31.0); MEAN CORPUSCULAR VOLUME 93.4 FL (78-98); MEAN PLATELET VOLUME 8.8 FL (7.4-10.4); MONOCYTES # (AUTO) 1.2 X10'3 (0-0.9); MONOCYTES % (AUTO) 6.9 % (2-12); NEUTROPHILS # (AUTO) 15.3 X10'3 (1.8-7.7); NEUTROPHILS % (AUTO) 84.3 % (42-75); PLATELET COUNT 131 X10'3 (140-440); RED BLOOD COUNT 2.97 X10'6 (4.70-6.10); RED CELL DISTRIBUTION WIDTH 13.8 % (11.5-14.5); WHITE BLOOD COUNT 18.2 X10'3 (4.5-11.0)
[2022-03-11] MEDS: acetylcysteine 200 MG/ml 4ml vial INH SCH ×6 (03:22→23:18)
[2022-03-11] MEDS: ipratropium/albuterol 3ml nebule NEB SCH ×6 (03:22→23:18)
[2022-03-11 03:32] LABS: ALANINE AMINOTRANSFERASE 34 U/L (12-78); ALBUMIN 2.6 G/DL (3.4-5.0); ALBUMIN/GLOBULIN RATIO 0.9 (1.1-1.5); ALKALINE PHOSPHATASE 40 IU/L (46-116); ANION GAP 3 (8-16); ASPARTATE AMINO TRANSFERASE 53 U/L (10-37); BILIRUBIN,TOTAL 0.6 MG/DL (0.1-1.0); BLOOD UREA NITROGEN 22 MG/DL (7-18); BUN/CREATININE RATIO 34.9 (5.4-32.0); CALCIUM 7.7 MG/DL (8.5-10.1); CHLORIDE 107 MMOL/L (99-107); CREATININE 0.63 MG/DL (0.60-1.10); GLUCOSE 125 MG/DL (70-104); MAGNESIUM 2.1 MG/DL (1.5-2.4); PHOSPHORUS 2.9 MG/DL (2.3-4.5); POTASSIUM 4.1 MMOL/L (3.5-5.1); SODIUM 139 MMOL/L (135-145); TOTAL CARBON DIOXIDE 29.5 MMOL/L (24-32); TOTAL PROTEIN 5.5 G/DL (6.4-8.2); eGFR > 90 ML/MIN
[2022-03-11] MEDS: magnesium 2GM in 50ml NS 50 ML IV PRN (05:00)
[2022-03-11] MEDS: potassium Cl 20mEq/100mL bag 100 ML IV PRN ×2 (05:01→06:20)
[2022-03-11] MEDS: dexmedetomidin/NS 400mcg/100ml 100 ML IV SCH ×3 (06:13→23:15)
[2022-03-11] MEDS: pantoprazole 40mg Tablet.DR PO SCH (06:58)
[2022-03-11] MEDS: aspirin 325mg tablet, delayed-release (Ecotrin) PO SCH (06:59)
[2022-03-11] MEDS: dutasteride 0.5 MG capsule PO SCH (07:00)
[2022-03-11] MEDS: HYDROcodone/acetaminophen 10/325mg tab PO PRN ×3 (07:32→20:36)
[2022-03-11] MEDS: levoFLOXACIN-Levaquin 500mg/D5 100 ML IV SCH (07:39)
[2022-03-11] MEDS: amiodarone 200mg tablet PO SCH ×3 (08:03→23:51)
[2022-03-11] MEDS: midodrine tablet 2.5 MG TABLET PO SCH ×3 (08:21→16:10)
[2022-03-11] MEDS: sennosides/docusate sodium tablet PO SCH ×2 (08:21→20:36)
--- NOTE | 2022-03-11 10:38 | NUR ---
Dr. Chowdhury in earlier. Orders received to start PO Amio, wean gtt off and start Midrodrine. Stated pt. will remain in ICU today.
--- NOTE | 2022-03-11 10:59 | NUR ---
Initial: Pt s/p CABG this admit per EMR. Currently on NCS diet w/ 100% PO intake of meals meeting est energy needs though only partially meeting est protein needs. Will provide double protein WB and recommend Jeff smoothies BID to assist w/ wound healing. Pt is noted to be very [place]/deaf. Provided pt's S/O w/ written and verbal CABG nutrition therapy education w/ RD contact info. [facility] 03/05 receiving routine bowel care. Will continue to monitor. Recs: 1. Continue NCS diet as tolerated 2. Double protein WB 3. Jeff smoothies BIDBD; pending MD verification 4. Bowel care per rx 5. Weekly wts Addendum: 03/11/22 at [address] Amended: Links added.
[2022-03-11] MEDS: JUVEN Smoothie Arginine/Glut./Ca2+Bmb (Juven 19.3pkt) 240ml cup PO SCH (17:30)
[2022-03-11] MEDS: enoxaparin 40mg/0.4ml syringe SUBCUT SCH (20:35)
[2022-03-11] MEDS: atorvastatin 10mg tablet PO SCH (20:36)
[2022-03-12] VITALS (23 sets, daily range): BP systolic 104–149; BP diastolic 57–77
[2022-03-12 02:18] LABS: BASOPHILS # (AUTO) 0.1 X10'3 (0-0.2); BASOPHILS % (AUTO) 0.5 % (0-1); EOSINOPHILS # (AUTO) 0.1 X10'3 (0-0.9); EOSINOPHILS % (AUTO) 0.6 % (0-6); HEMATOCRIT 27.7 % (42.0-52.0); HEMOGLOBIN 9.3 g/dl (14.0-17.9); LYMPHOCYTES # (AUTO) 1.7 X10'3 (1.1-4.8); LYMPHOCYTES % (AUTO) 10.7 % (21-51); MEAN CORPUSCULAR HEMOGLOBIN 31.3 PG (27.0-31.0); MEAN CORPUSCULAR HGB CONC 33.7 g/dL (33.0-36.5); MEAN CORPUSCULAR VOLUME 93.1 FL (78-98); MEAN PLATELET VOLUME 8.8 FL (7.4-10.4); MONOCYTES # (AUTO) 1.1 X10'3 (0-0.9); MONOCYTES % (AUTO) 7.1 % (2-12); NEUTROPHILS # (AUTO) 12.5 X10'3 (1.8-7.7); NEUTROPHILS % (AUTO) 81.1 % (42-75); PLATELET COUNT 151 X10'3 (140-440); RED BLOOD COUNT 2.98 X10'6 (4.70-6.10); RED CELL DISTRIBUTION WIDTH 13.9 % (11.5-14.5); WHITE BLOOD COUNT 15.5 X10'3 (4.5-11.0)
[2022-03-12 02:32] LABS: ALBUMIN 2.5 G/DL (3.4-5.0); ANION GAP 8 (8-16); BLOOD UREA NITROGEN 21 MG/DL (7-18); BUN/CREATININE RATIO 38.9 (5.4-32.0); CALCIUM 8.1 MG/DL (8.5-10.1); CHLORIDE 106 MMOL/L (99-107); CREATININE 0.54 MG/DL (0.60-1.10); GLUCOSE 108 MG/DL (70-104); MAGNESIUM 2.2 MG/DL (1.5-2.4); PHOSPHORUS 3.2 MG/DL (2.3-4.5); POTASSIUM 4.1 MMOL/L (3.5-5.1); SODIUM 140 MMOL/L (135-145); TOTAL CARBON DIOXIDE 26.3 MMOL/L (24-32); eGFR > 90 ML/MIN
[2022-03-12] MEDS: acetylcysteine 200 MG/ml 4ml vial INH SCH ×2 (03:11→07:41)
[2022-03-12] MEDS: ipratropium/albuterol 3ml nebule NEB SCH ×6 (03:11→23:32)
[2022-03-12] MEDS: HYDROcodone/acetaminophen 10/325mg tab PO PRN ×2 (04:36→16:50)
[2022-03-12] MEDS: potassium Cl 20mEq/100mL bag 100 ML IV PRN ×2 (05:04→06:23)
[2022-03-12] MEDS: midodrine tablet 2.5 MG TABLET PO SCH (07:11)
[2022-03-12] MEDS: amiodarone 200mg tablet PO SCH ×2 (07:11→16:00)
[2022-03-12] MEDS: pantoprazole 40mg Tablet.DR PO SCH (07:11)
[2022-03-12] MEDS: sennosides/docusate sodium tablet PO SCH ×2 (07:11→20:25)
[2022-03-12] MEDS: aspirin 325mg tablet, delayed-release (Ecotrin) PO SCH (07:11)
[2022-03-12] MEDS: dutasteride 0.5 MG capsule PO SCH (07:11)
[2022-03-12] MEDS: JUVEN Smoothie Arginine/Glut./Ca2+Bmb (Juven 19.3pkt) 240ml cup PO SCH ×2 (07:30→17:26)
[2022-03-12] MEDS: levoFLOXACIN-Levaquin 500mg/D5 100 ML IV SCH (07:32)
[2022-03-12] MEDS: dexmedetomidin/NS 400mcg/100ml 100 ML IV SCH (07:46)
--- NOTE | 2022-03-12 08:07 | NUR ---
Dr. Chowdhury and Alverto Omalley PA here.
[2022-03-12] MEDS: magnesium 2GM in 50ml NS 50 ML IV PRN (09:02)
--- NOTE | 2022-03-12 09:25 | NUR ---
Pt. set up for bath, brushed teeth and washed hair. Ambulated with PT for first time post op.
--- NOTE | 2022-03-12 09:41 | NUR ---
RN asked Dr. Chowdhury about dc'ing palmer. Did not get an answer. Palmer is a large 3-way Palmer catheter. Addendum: 03/12/22 at 0942 by She Pool RN Amended: Links added.
--- NOTE | 2022-03-12 11:46 | NUR ---
F/u 03/12: RN reports pt not wanting hot foods mainly cooler/liquid kcals given sore throat following recent intubation from surgery. Jeff smoothie BIDBD starting WS today following PA verification. Double proteins WB removed and regular smoothie added WL for further kcals; dietary notified. Addendum: 03/12/22 at [address] Amended: Links added.
--- NOTE | 2022-03-12 11:48 | NUR ---
F/u 03/12: RN reports pt not wanting hot foods mainly cooler/liquid kcals given sore throat following recent intubation from surgery. Jeff smoothie BIDBD starting WS today following PA verification. Double proteins WB removed and regular smoothie added WL for further kcals; dietary notified. BRITTON d/w RN regarding further bowel regimen per MD as 7 days constipation receiving routine senna per EMR. Recs: 1. advance to heart healthy diet as medically indicated 2. Jeff smoothies BIDBD; normal smoothie WL 3. routine bowel regimen; 7 days constipation per EMR 4. Weekly wts Addendum: 03/12/22 at [address] Amended: Links added.
--- NOTE | 2022-03-12 14:24 | NUR ---
Project Eng Kristine stated pt. can go to [facility] tomorrow. supervisor treating and pumping aware.
[2022-03-12] MEDS: sodium chloride 0.45% 1,000 ML IV SCH (15:50)
--- NOTE | 2022-03-12 17:52 | NUR ---
New gown applied as PASHA sites oozed slightly. Dressing reinforced.
[2022-03-12] MEDS: enoxaparin 40mg/0.4ml syringe SUBCUT SCH (20:25)
[2022-03-12] MEDS: atorvastatin 10mg tablet PO SCH (21:10)
[2022-03-13] VITALS (24 sets, daily range): BP systolic 89–143; BP diastolic 54–88
[2022-03-13] MEDS: amiodarone 200mg tablet PO SCH ×3 (00:34→16:19)
[2022-03-13 02:44] LABS: BASOPHILS % (AUTO) 0.2 % (0-1); EOSINOPHILS # (AUTO) 0.2 X10'3 (0-0.9); EOSINOPHILS % (AUTO) 1.3 % (0-6); HEMATOCRIT 30.1 % (42.0-52.0); HEMOGLOBIN 10.1 g/dl (14.0-17.9); LYMPHOCYTES # (AUTO) 1.3 X10'3 (1.1-4.8); LYMPHOCYTES % (AUTO) 9.5 % (21-51); MEAN CORPUSCULAR HEMOGLOBIN 31.3 PG (27.0-31.0); MEAN CORPUSCULAR HGB CONC 33.7 g/dL (33.0-36.5); MEAN CORPUSCULAR VOLUME 92.9 FL (78-98); MEAN PLATELET VOLUME 8.8 FL (7.4-10.4); MONOCYTES % (AUTO) 7.8 % (2-12); NEUTROPHILS # (AUTO) 10.7 X10'3 (1.8-7.7); NEUTROPHILS % (AUTO) 81.2 % (42-75); PLATELET COUNT 205 X10'3 (140-440); RED BLOOD COUNT 3.24 X10'6 (4.70-6.10); RED CELL DISTRIBUTION WIDTH 13.9 % (11.5-14.5); WHITE BLOOD COUNT 13.2 X10'3 (4.5-11.0)
[2022-03-13 02:57] LABS: ALANINE AMINOTRANSFERASE 32 U/L (12-78); ALBUMIN 2.5 G/DL (3.4-5.0); ALBUMIN/GLOBULIN RATIO 0.8 (1.1-1.5); ALKALINE PHOSPHATASE 49 IU/L (46-116); ANION GAP 2 (8-16); ASPARTATE AMINO TRANSFERASE 28 U/L (10-37); BILIRUBIN,TOTAL 0.9 MG/DL (0.1-1.0); BLOOD UREA NITROGEN 17 MG/DL (7-18); BUN/CREATININE RATIO 30.9 (5.4-32.0); CALCIUM 8.1 MG/DL (8.5-10.1); CHLORIDE 105 MMOL/L (99-107); CREATININE 0.55 MG/DL (0.60-1.10); GLUCOSE 99 MG/DL (70-104); MAGNESIUM 1.8 MG/DL (1.5-2.4); PHOSPHORUS 3.1 MG/DL (2.3-4.5); POTASSIUM 3.7 MMOL/L (3.5-5.1); SODIUM 135 MMOL/L (135-145); TOTAL CARBON DIOXIDE 27.9 MMOL/L (24-32); TOTAL PROTEIN 5.8 G/DL (6.4-8.2); eGFR > 90 ML/MIN
[2022-03-13] MEDS: ipratropium/albuterol 3ml nebule NEB SCH ×6 (03:32→23:00)
[2022-03-13] MEDS: potassium Cl 20mEq/100mL bag 100 ML IV PRN ×2 (03:52→06:40)
[2022-03-13] MEDS: HYDROcodone/acetaminophen 10/325mg tab PO PRN ×2 (06:41→17:37)
[2022-03-13] MEDS: pantoprazole 40mg Tablet.DR PO SCH (06:41)
[2022-03-13] MEDS: JUVEN Smoothie Arginine/Glut./Ca2+Bmb (Juven 19.3pkt) 240ml cup PO SCH ×2 (07:30→17:38)
[2022-03-13] MEDS: levoFLOXACIN-Levaquin 500mg/D5 100 ML IV SCH (07:34)
[2022-03-13] MEDS: aspirin 325mg tablet, delayed-release (Ecotrin) PO SCH (07:34)
[2022-03-13] MEDS: sennosides/docusate sodium tablet PO SCH ×2 (07:34→19:21)
[2022-03-13] MEDS: dutasteride 0.5 MG capsule PO SCH (07:38)
[2022-03-13] MEDS ORDERED: potassium Cl 20 mEq SR tablet PO STA (08:11)
[2022-03-13] MEDS ORDERED: digoxin 250mcg/ml 2ml ampule IV ONE (08:15)
[2022-03-13] MEDS: acetaminophen 325mg tablet PO PRN (14:56)
[2022-03-13 15:56] LABS: POTASSIUM 4.2 MMOL/L (3.5-5.1)
[2022-03-13] MEDS: atorvastatin 10mg tablet PO SCH (19:21)
[2022-03-13] MEDS: enoxaparin 40mg/0.4ml syringe SUBCUT SCH (19:22)
--- NOTE | 2022-03-13 20:06 | NUR ---
patient states he doesn't want svn treatments tonight as they are making him cough more and adding to chest pain. he denies home svn use or any sob and has no whz and his oxygen sat is 96% on RA. RN made aware. Will continue to monitor for any needed PRN treatments later
--- NOTE | 2022-03-13 21:18 | NUR ---
Pts chest tube removal dressing was soiled with brown drainage. There were redness around site, stitches were in place. Dressing change was performed and site was clean with chlorhexidine wipes. New clean sterile dressing was place, pt tolerated it well without difficulty. Will continue to monitor.
[2022-03-14] VITALS (18 sets, daily range): BP systolic 80–142; BP diastolic 53–89
[2022-03-14] MEDS: amiodarone 200mg tablet PO SCH ×3 (00:01→16:46)
[2022-03-14] MEDS: HYDROcodone/acetaminophen 10/325mg tab PO PRN ×4 (02:11→22:16)
[2022-03-14] MEDS: ipratropium/albuterol 3ml nebule NEB SCH ×5 (03:00→20:02)
[2022-03-14 03:16] LABS: BASOPHILS % (AUTO) 0.3 % (0-1); EOSINOPHILS # (AUTO) 0.2 X10'3 (0-0.9); EOSINOPHILS % (AUTO) 1.9 % (0-6); HEMATOCRIT 28.5 % (42.0-52.0); HEMOGLOBIN 9.7 g/dl (14.0-17.9); LYMPHOCYTES # (AUTO) 1.7 X10'3 (1.1-4.8); MEAN CORPUSCULAR HEMOGLOBIN 31.8 PG (27.0-31.0); MEAN CORPUSCULAR HGB CONC 33.9 g/dL (33.0-36.5); MEAN CORPUSCULAR VOLUME 93.8 FL (78-98); MEAN PLATELET VOLUME 8.5 FL (7.4-10.4); MONOCYTES % (AUTO) 9.2 % (2-12); NEUTROPHILS # (AUTO) 8.3 X10'3 (1.8-7.7); NEUTROPHILS % (AUTO) 73.6 % (42-75); PLATELET COUNT 225 X10'3 (140-440); RED BLOOD COUNT 3.04 X10'6 (4.70-6.10); RED CELL DISTRIBUTION WIDTH 13.7 % (11.5-14.5); WHITE BLOOD COUNT 11.3 X10'3 (4.5-11.0)
[2022-03-14 04:37] LABS: ALBUMIN 2.3 G/DL (3.4-5.0); ANION GAP 8 (8-16); BLOOD UREA NITROGEN 17 MG/DL (7-18); BUN/CREATININE RATIO 29.3 (5.4-32.0); CALCIUM 7.9 MG/DL (8.5-10.1); CHLORIDE 108 MMOL/L (99-107); CREATININE 0.58 MG/DL (0.60-1.10); GLUCOSE 92 MG/DL (70-104); PHOSPHORUS 3.6 MG/DL (2.3-4.5); POTASSIUM 4.1 MMOL/L (3.5-5.1); SODIUM 141 MMOL/L (135-145); TOTAL CARBON DIOXIDE 25.4 MMOL/L (24-32); eGFR > 90 ML/MIN
[2022-03-14] MEDS: JUVEN Smoothie Arginine/Glut./Ca2+Bmb (Juven 19.3pkt) 240ml cup PO SCH ×2 (07:30→17:30)
[2022-03-14] MEDS: dutasteride 0.5 MG capsule PO SCH (08:11)
[2022-03-14] MEDS: levoFLOXACIN-Levaquin 500mg/D5 100 ML IV SCH (08:12)
[2022-03-14] MEDS: pantoprazole 40mg Tablet.DR PO SCH (08:12)
[2022-03-14] MEDS: metoprolol tartrate 12.5mg (1/2 tablet) PO SCH ×2 (08:34→19:47)
[2022-03-14] MEDS: sennosides/docusate sodium tablet PO SCH ×2 (08:35→19:47)
[2022-03-14] MEDS: aspirin 325mg tablet, delayed-release (Ecotrin) PO SCH (08:35)
[2022-03-14] MEDS: apixaban 2.5mg tablet PO SCH ×2 (09:10→19:47)
[2022-03-14] MEDS ORDERED: lactulose 20gm/30ml cup PO PRN (09:25)
[2022-03-14] MEDS ORDERED: bisacodyl 10mg suppository rectal RC PRN (09:30)
--- NOTE | 2022-03-14 11:29 | NUR ---
CABG Consult: Pt/SO provided w/ education this admit; see prior RD note. Noted pt poor PO trends/ONS acceptance past 2 days though also has not had BM since admit 9 days per EMR likely impacting PO intake. Pt receiving routine senna w/ PRN lactulose first dosage this AM per EMR. Recs: 1. advance to regular diet given poor intake past 2 days; encourage PO 2. Jeff smoothies BIDBD; normal smoothie WL 3. routine bowel regimen; 9 days constipation per EMR 4. Weekly wts Addendum: 03/14/22 at [address] Amended: Links added.
--- NOTE | 2022-03-14 15:38 | NUR ---
[id number]: Pt a/ox4, Communicated with patient through white board. VSS. Wound vac in place to chest. at bedside. Left medial leg incision remains CDI. Right IJ removed at 1000. Dressing applied. No BM in several days, notified, order received for PRN lactulose. Gave 1 dose this AM. Tele: AFIB. Hr: 80-120's this AM. added 12.5mg metoprolol BID, HR now 90's. BPs now low 100's. Using urinal, Urine is dark and concentrated. Safety maintained.
--- NOTE | 2022-03-14 18:35 | NUR ---
Patient in room PCU 3011. I have received report from MILLICENT Lema and had the opportunity to ask questions and assume patient care.
[2022-03-14] MEDS: enoxaparin 40mg/0.4ml syringe SUBCUT SCH (19:46)
[2022-03-14] MEDS: atorvastatin 10mg tablet PO SCH (19:47)
[2022-03-14] MEDS: magnesium Cl slow-release 64mg tablet PO SCH (19:47)
[2022-03-14] MEDS: potassium Cl 20 mEq SR tablet PO SCH (19:47)
[2022-03-15] MEDS: amiodarone 200mg tablet PO SCH ×3 (00:38→20:40)
[2022-03-15 02:00] VITALS: BP 112/74
[2022-03-15] MEDS: HYDROcodone/acetaminophen 10/325mg tab PO PRN ×3 (02:16→17:53)
[2022-03-15 06:00] VITALS: BP 119/74
[2022-03-15 06:10] LABS: BASOPHILS % (AUTO) 0.2 % (0-1); EOSINOPHILS # (AUTO) 0.1 X10'3 (0-0.9); EOSINOPHILS % (AUTO) 0.9 % (0-6); HEMOGLOBIN 11.3 g/dl (14.0-17.9); LYMPHOCYTES # (AUTO) 1.7 X10'3 (1.1-4.8); LYMPHOCYTES % (AUTO) 10.9 % (21-51); MEAN CORPUSCULAR HEMOGLOBIN 32.1 PG (27.0-31.0); MEAN CORPUSCULAR HGB CONC 34.3 g/dL (33.0-36.5); MEAN CORPUSCULAR VOLUME 93.4 FL (78-98); MEAN PLATELET VOLUME 8.3 FL (7.4-10.4); MONOCYTES % (AUTO) 6.5 % (2-12); NEUTROPHILS # (AUTO) 12.9 X10'3 (1.8-7.7); NEUTROPHILS % (AUTO) 81.5 % (42-75); PLATELET COUNT 365 X10'3 (140-440); RED BLOOD COUNT 3.53 X10'6 (4.70-6.10); RED CELL DISTRIBUTION WIDTH 13.9 % (11.5-14.5); WHITE BLOOD COUNT 15.8 X10'3 (4.5-11.0)
[2022-03-15 06:19] LABS: ALBUMIN 2.8 G/DL (3.4-5.0); ANION GAP 7 (8-16); BLOOD UREA NITROGEN 22 MG/DL (7-18); BUN/CREATININE RATIO 28.2 (5.4-32.0); CALCIUM 8.8 MG/DL (8.5-10.1); CHLORIDE 105 MMOL/L (99-107); CREATININE 0.78 MG/DL (0.60-1.10); GLUCOSE 112 MG/DL (70-104); POTASSIUM 4.3 MMOL/L (3.5-5.1); SODIUM 139 MMOL/L (135-145); TOTAL CARBON DIOXIDE 26.8 MMOL/L (24-32); eGFR > 90 ML/MIN
--- NOTE | 2022-03-15 06:48 | NUR ---
Problems reprioritized. Patient report given, questions answered & plan of care reviewed with MILLICENT Chance.
--- NOTE | 2022-03-15 06:50 | NUR ---
Problems reprioritized. Patient report given, questions answered & plan of care reviewed with MILLICENT Chance.
[2022-03-15] MEDS: ipratropium/albuterol 3ml nebule NEB SCH ×2 (07:00→11:27)
[2022-03-15] MEDS: pantoprazole 40mg Tablet.DR PO SCH (07:30)
[2022-03-15] MEDS: JUVEN Smoothie Arginine/Glut./Ca2+Bmb (Juven 19.3pkt) 240ml cup PO SCH ×2 (07:30→17:48)
[2022-03-15] MEDS: aspirin 325mg tablet, delayed-release (Ecotrin) PO SCH (08:59)
[2022-03-15] MEDS: potassium Cl 20 mEq SR tablet PO SCH ×2 (08:59→20:41)
[2022-03-15] MEDS: metoprolol tartrate 12.5mg (1/2 tablet) PO SCH ×2 (08:59→20:45)
[2022-03-15] MEDS: sennosides/docusate sodium tablet PO SCH ×2 (08:59→20:41)
[2022-03-15] MEDS: magnesium Cl slow-release 64mg tablet PO SCH ×2 (08:59→20:41)
[2022-03-15] MEDS: dutasteride 0.5 MG capsule PO SCH (09:00)
[2022-03-15] MEDS: levoFLOXACIN 500mg tablet PO SCH (09:01)
[2022-03-15 11:00] VITALS: BP 101/60
[2022-03-15] MEDS ORDERED: magnesium citrate 296ml oral solution PO ONE (11:25)
[2022-03-15] MEDS ORDERED: ondansetron 4mg rapidly disintigrating tab PO PRN (13:30)
--- NOTE | 2022-03-15 14:59 | NUR ---
Called report on pt. to Emir RICKS [facility]. Pt. must have BM before transfer at 1600.
[2022-03-15 15:00] VITALS: BP 109/64
[2022-03-15 18:00] VITALS: BP 126/52
--- NOTE | 2022-03-15 18:38 | NUR ---
Report given to Miriam RICKS.
[2022-03-15] MEDS: apixaban 5mg tablet PO SCH (20:40)
[2022-03-15] MEDS: atorvastatin 10mg tablet PO SCH (20:41)
[2022-03-15 22:00] VITALS: BP 116/60
[2022-03-16 02:00] VITALS: BP 101/67
[2022-03-16 06:00] VITALS: BP 114/58
--- NOTE | 2022-03-16 06:19 | NUR ---
Problems reprioritized. Patient report given, questions answered & plan of care reviewed with MILLICENT Chance.
[2022-03-16 07:31] LABS: BASOPHILS # (AUTO) 0.1 X10'3 (0-0.2); BASOPHILS % (AUTO) 0.3 % (0-1); EOSINOPHILS # (AUTO) 0.4 X10'3 (0-0.9); EOSINOPHILS % (AUTO) 2.1 % (0-6); HEMATOCRIT 31.4 % (42.0-52.0); HEMOGLOBIN 10.7 g/dl (14.0-17.9); LYMPHOCYTES # (AUTO) 1.7 X10'3 (1.1-4.8); MEAN CORPUSCULAR HEMOGLOBIN 32.2 PG (27.0-31.0); MEAN CORPUSCULAR HGB CONC 34.1 g/dL (33.0-36.5); MEAN CORPUSCULAR VOLUME 94.4 FL (78-98); MEAN PLATELET VOLUME 7.5 FL (7.4-10.4); MONOCYTES # (AUTO) 1.3 X10'3 (0-0.9); MONOCYTES % (AUTO) 7.4 % (2-12); NEUTROPHILS # (AUTO) 13.9 X10'3 (1.8-7.7); NEUTROPHILS % (AUTO) 80.2 % (42-75); PLATELET COUNT 402 X10'3 (140-440); RED BLOOD COUNT 3.33 X10'6 (4.70-6.10); WHITE BLOOD COUNT 17.3 X10'3 (4.5-11.0)
[2022-03-16] MEDS: aspirin 325mg tablet, delayed-release (Ecotrin) PO SCH (07:36)
[2022-03-16] MEDS: potassium Cl 20 mEq SR tablet PO SCH (07:36)
[2022-03-16] MEDS: pantoprazole 40mg Tablet.DR PO SCH (07:36)
[2022-03-16 07:37] VITALS: BP_SYST 127
[2022-03-16] MEDS: magnesium Cl slow-release 64mg tablet PO SCH (07:37)
[2022-03-16] MEDS: apixaban 5mg tablet PO SCH (07:37)
[2022-03-16] MEDS: levoFLOXACIN 500mg tablet PO SCH (07:37)
[2022-03-16] MEDS: sennosides/docusate sodium tablet PO SCH (07:37)
[2022-03-16] MEDS: metoprolol tartrate 12.5mg (1/2 tablet) PO SCH (07:37)
[2022-03-16] MEDS: dutasteride 0.5 MG capsule PO SCH (07:38)
[2022-03-16] MEDS: amiodarone 200mg tablet PO SCH (07:38)
[2022-03-16] MEDS: JUVEN Smoothie Arginine/Glut./Ca2+Bmb (Juven 19.3pkt) 240ml cup PO SCH (07:39)
[2022-03-16] MEDS: HYDROcodone/acetaminophen 10/325mg tab PO PRN (07:39)
[2022-03-16 07:47] LABS: ALBUMIN 2.8 G/DL (3.4-5.0); ANION GAP 5 (8-16); BLOOD UREA NITROGEN 24 MG/DL (7-18); BUN/CREATININE RATIO 31.6 (5.4-32.0); CALCIUM 8.6 MG/DL (8.5-10.1); CHLORIDE 105 MMOL/L (99-107); CREATININE 0.76 MG/DL (0.60-1.10); GLUCOSE 101 MG/DL (70-104); SODIUM 138 MMOL/L (135-145); TOTAL CARBON DIOXIDE 27.7 MMOL/L (24-32); TRIGLYCERIDES 74 MG/DL (20-135); eGFR > 90 ML/MIN
--- NOTE | 2022-03-16 08:15 | NUR ---
Pt. c/o cough. Encouraged to use his IS 5x every hour. Used both IS and flutter in front of RN and did well. Did cough quite a bit. Paged RT.
--- NOTE | 2022-03-16 10:25 | NUR ---
Per CM p/u time for pt will be 1130.
--- NOTE | 2022-03-16 10:29 | NUR ---
KENDALL Muñoz made aware by phone that WBC jumped up to 17.3. He is ok with pt. transferring to [facility]. Called [facility]. Spoke with Emir RICKS. He aware of transfer and does not require report as I spoke with him yesterday. Pt. has had a successful BM
--- NOTE | 2022-03-16 11:30 | NUR ---
Pt. transferred to [facility]. PIV DC'd, cannula intact, pressure bandage applied. Pt. gathered his belongings. Tele removed and returned.
== END 2022-03-16 12:07 | DRG 234 ==
LOC: SSTAY O 11:28 → PCU 3S 17:00 → CICU 2S 03-08 12:57 → PCU 3S 03-14 13:45
PROVIDERS: ADMIT Thoracic Surgery (Cardiothoracic Vascular Surgery); ATTEND Thoracic Surgery (Cardiothoracic Vascular Surgery)
PROC: 4A023N7 Measurement of Cardiac Sampling and Pressure, Left Heart, Percutaneous Approach (ICD-10-PCS; principal; 2022-03-06)
PROC: B2111ZZ Fluoroscopy of Multiple Coronary Arteries using Low Osmolar Contrast (ICD-10-PCS; 2022-03-06)
PROC: B2151ZZ Fluoroscopy of Left Heart using Low Osmolar Contrast (ICD-10-PCS; 2022-03-06)
PROC: B41F1ZZ Fluoroscopy of Right Lower Extremity Arteries using Low Osmolar Contrast (ICD-10-PCS; 2022-03-06)
PROC: B3111ZZ Fluoroscopy of Right Brachiocephalic-Subclavian Artery using Low Osmolar Contrast (ICD-10-PCS; 2022-03-06)
PROC: B3121ZZ Fluoroscopy of Left Subclavian Artery using Low Osmolar Contrast (ICD-10-PCS; 2022-03-06)
PROC: B31N1ZZ Fluoroscopy of Other Upper Arteries using Low Osmolar Contrast (ICD-10-PCS; 2022-03-06)
PROC: 02100Z9 Bypass Coronary Artery, One Artery from Left Internal Mammary, Open Approach (ICD-10-PCS; 2022-03-08)
PROC: 021309W Bypass Coronary Artery, Four or More Arteries from Aorta with Autologous Venous Tissue, Open Approach (ICD-10-PCS; 2022-03-08)
PROC: 06BQ4ZZ Excision of Left Saphenous Vein, Percutaneous Endoscopic Approach (ICD-10-PCS; 2022-03-08)
PROC: B24BZZ4 Ultrasonography of Heart with Aorta, Transesophageal (ICD-10-PCS; 2022-03-08)
PROC: 5A1221Z Performance of Cardiac Output, Continuous (ICD-10-PCS; 2022-03-08)
DX: I25.10 Atherosclerotic heart disease of native coronary artery without angina pectoris (principal); J98.11 Atelectasis; I50.32 Chronic diastolic (congestive) heart failure; Z20.822 Contact with and (suspected) exposure to COVID-19; I48.91 Unspecified atrial fibrillation; I10 Essential (primary) hypertension; Z96.653 Presence of artificial knee joint, bilateral; K58.9 Irritable bowel syndrome, unspecified; M47.9 Spondylosis, unspecified; M19.90 Unspecified osteoarthritis, unspecified site; G89.4 Chronic pain syndrome; I11.0 Hypertensive heart disease with heart failure
CPT/HCPCS: 0232T; 93312; 93325; 93458; 36415; 36600; 71045; 71046; 71250; 80048; 80053; 81001; 81003; 82330; 82435; 82803; 82947; 82948; 83036; 83605; 83735; 84100; 84132; 84295; 84478; 85007; 85018; 85025; 85347; 85384; 85610; 85730; 86885; 86900; 86901; 86920; 87040; 87070; 87077; 87081; 87088; 87185; 87635; 93005; 93880; 93971; 94002; 94003; 94010; 94640; 94668; 94760; 97110; 97116; 97161; 97164; 97530; 99152; 99153; A4618; A4620; A6258; A6402; A6446; A6449; A7000; A7048; C1713; C1751; C1760; C1769; G0378; J0282; J0690; J1100; J1160; J1265; J1644; J1650; J1815; J1940; J1956; J2060; J2150; J2250; J2270; J2370; J2405; J2440; J2704; J2720; J2795; J2930; J3010; J3370; J3475; J3480; J3490; J7030; J7040; J7050; J7120; P9045; P9047; Q0163; Q0177; Q9967

== ENCOUNTER 2022-08-22 07:49 | Day surgery (SDC) | payer MEDICARE, BC ==
[~2022-08-22] VITALS: Ht 180.3 cm; Wt 111.7 kg
[~2022-08-22 07:49] MED LIST changes: +ASPI-1071 PO; +ATOR10TA70 PO; +DOCU100C40 PO; -FAMO20TA41 PO; +HYDR-3686 PO; -NABU-139 PO; -OMEP20TA43 PO; +PANT40TA54 PO; +ROPI0.2540 PO
[2022-08-22 08:15] VITALS: BP 145/94
[2022-08-22] MEDS ORDERED: albumin 25% 100mL bottle x 1 IV PRN (08:20)
[2022-08-22] MEDS ORDERED: ACET-1025 PO (08:20)
[2022-08-22] MEDS ORDERED: TRAM50TA2 PO (08:20)
[2022-08-22 09:00] VITALS: BP_SYST 132; BP_SYST 141; BP_DIAS 85; BP_DIAS 92
[2022-08-22 09:15] VITALS: BP 126/93
[2022-08-22] MEDS ORDERED: PANT40TA54 PO (09:16)
[2022-08-22] MEDS ORDERED: DOCU100C40 PO (09:16)
[2022-08-22] MEDS ORDERED: ATOR10TA70 PO (09:16)
[2022-08-22] MEDS ORDERED: DUTA0.5C40 PO (09:16)
[2022-08-22] MEDS ORDERED: ROPI0.2540 PO (09:16)
[2022-08-22 09:30] VITALS: BP 131/89
[2022-08-22 09:45] VITALS: BP 133/84
== END 2022-08-22 09:50 | disposition home or self-care (01) ==
LOC: SSTAY O 07:49
PROVIDERS: ATTEND Radiology Vascular & Interventional Radiology
DX: J91.8 Pleural effusion in other conditions classified elsewhere (principal); J90 Pleural effusion, not elsewhere classified; I25.10 Atherosclerotic heart disease of native coronary artery without angina pectoris; M19.90 Unspecified osteoarthritis, unspecified site; I10 Essential (primary) hypertension; Z98.890 Other specified postprocedural states; Z87.891 Personal history of nicotine dependence; Z72.89 Other problems related to lifestyle; Z79.899 Other long term (current) drug therapy; Z96.659 Presence of unspecified artificial knee joint
CPT/HCPCS: 32555; C1729; 88108; 88305

== ENCOUNTER 2022-09-27 11:08 | Emergency (ER) | payer MEDICARE, BC ==
[~2022-09-27] VITALS: Ht 180.3 cm; Wt 120.0 kg
[~2022-09-27 11:08] MED LIST changes: +ACET-1025 PO; -ASPI-1071 PO; -HYDR-3686 PO; +TRAM50TA2 PO
[2022-09-27 12:11] VITALS: BP 110/71
== END 2022-09-27 17:21 | disposition left against medical advice (07) ==
LOC: ER 11:08
DX: R05.9 Cough, unspecified (principal); Z53.21 Procedure and treatment not carried out due to patient leaving prior to being seen by health care provider

== ENCOUNTER 2023-01-23 10:24 | Outpatient (CLI) | payer MEDICARE, BC ==
[2023-01-23] MEDS ORDERED: BARIUM SULFATE 340 ML SUSP.RECON***PROCEDURE AREA ONLY**DONT ENTER PO ONE (12:00)
== END 2023-01-23 23:59 | disposition home or self-care (01) ==
LOC: RAD 10:24
PROVIDERS: ATTEND Internal Medicine Gastroenterology
DX: K21.9 Gastro-esophageal reflux disease without esophagitis (principal); R13.10 Dysphagia, unspecified
CPT/HCPCS: 74220

== ENCOUNTER 2023-09-10 10:33 | Emergency (ER) | payer MEDICARE, BC ==
[~2023-09-10] VITALS: Ht 180.3 cm; Wt 100.0 kg
[~2023-09-10 10:33] MED LIST changes: -ROPI0.2540 PO; +ROPI0.2544 PO
[2023-09-10 12:45] VITALS: BP 120/72; PULSE 72; RESP 16; TEMP 98; O2SAT 94
--- NOTE | 2023-09-10 17:18 | NUR ---
HOSTEL PARENT'S GEN ASSESSMENT REVIEWED BY BARRERA, RNC CS; APPROVED
== END 2023-09-10 12:54 | disposition home or self-care (01) ==
LOC: ER 10:34
DX: K59.00 Constipation, unspecified (principal); Z79.899 Other long term (current) drug therapy
CPT/HCPCS: 99282